=== PATIENT | male | born 1965 | race Two or more races ===

== ENCOUNTER 2024-04-05 09:33 | Emergency (ER) | payer OTHER ==
[~2024-04-05] VITALS: Ht 162.6 cm; Wt 81.6 kg
[2024-04-05 10:35] LABS: BASOPHILS % (AUTO) 0.6 % (0.0-2.0); EOSINOPHILS # (AUTO) 0.3 K/uL (0.0-0.7); EOSINOPHILS % (AUTO) 4.5 % (0.0-6.0); HEMATOCRIT 44 % (39-51); HEMOGLOBIN 15.1 g/dL (13.5-17.5); LYMPHOCYTES # (AUTO) 2.3 K/uL (0.8-4.8); LYMPHOCYTES % (AUTO) 29.9 % (20.0-44.0); MEAN CORPUSCULAR HEMOGLOBIN 32 PG (26.0-33.0); MEAN CORPUSCULAR HGB CONC 34 g/dl (31.0-36.0); MEAN CORPUSCULAR VOLUME 93 fL (80-96); MONOCYTES % (AUTO) 12.8 % (2.0-12.0); NEUTROPHILS % (AUTO) 52.2 % (43.0-81.0); PLATELET COUNT (AUTO) 292 K/uL (150-450); RED BLOOD CELL COUNT(AUTO) 4.79 MIL/uL (4.5-6.0); WHITE BLOOD COUNT (AUTO) 7.7 K/uL (4.3-11.0)
[2024-04-05 10:46] LABS: POTASSIUM 4.1 mmol/L (3.5-5.1)
[2024-04-05 11:51] VITALS: BP 152/88; TEMP 98.6; O2SAT 98
== END 2024-04-05 11:52 | disposition home or self-care (01) ==
LOC: ER 10:00
DX: M54.42 Lumbago with sciatica, left side (principal); I10 Essential (primary) hypertension; G89.29 Other chronic pain; R20.0 Anesthesia of skin; R20.2 Paresthesia of skin
CPT/HCPCS: 36415; 80048-TC; 85025-TC